=== PATIENT | male | born 1970 | race Caucasian/White ===

== ENCOUNTER 2025-03-11 18:43 | Emergency (ER) | payer OTHER ==
[~2025-03-11] VITALS: Ht 182.9 cm; Wt 81.8 kg
[2025-03-11] MEDS ORDERED: FLUORESCEIN SODIUM 1 MG STRIP ONE (20:06)
[2025-03-11] MEDS: PROPARACAINE HCL 0.5% 15 ML OPHTHALMIC SOLUTION OU ONE (20:15)
[2025-03-11] MEDS ORDERED: HYDR-4062 PO (20:30)
[2025-03-11 20:45] VITALS: BP 144/82; PULSE 80; RESP 18; TEMP 97; O2SAT 99
[2025-03-11] MEDS: ERYTHROMYCIN 0.5% 3.5 GM TUBE OPHTHALMIC OINTMENT OD ONE (20:51)
[2025-03-11] MEDS: HYDROCODONE/ACETAMINOPHEN 5-325 MG TABLET PO ONE (20:53)
== END 2025-03-11 21:05 | disposition home or self-care (01) ==
LOC: EMS 18:43
DX: S05.01XA Injury of conjunctiva and corneal abrasion without foreign body, right eye, initial encounter (principal); W23.0XXA Caught, crushed, jammed, or pinched between moving objects, initial encounter; Y93.89 Activity, other specified; Y92.89 Other specified places as the place of occurrence of the external cause; Y99.8 Other external cause status
CPT/HCPCS: 99283